=== PATIENT | male | born 1960 | race Caucasian/White ===

== ENCOUNTER 2017-02-09 20:15 | Emergency (ER) | payer BC, OTHER ==
[~2017-02-09] VITALS: Ht 193 cm; Wt 99.1 kg
[2017-02-09 20:20] VITALS: TEMP 37; Ht 193 cm; Wt 99.1 kg
[2017-02-09] MEDS ORDERED: ATOR-24 PO (20:36)
[2017-02-09] MEDS ORDERED: ASPI81TA28 PO (20:36)
[2017-02-09] MEDS ORDERED: MULT-506 PO (20:36)
[2017-02-09] MEDS ORDERED: BUPIVACAINE 0.5 % 5 MG/1 ML MPF 30ML VIAL ONE (21:07)
[2017-02-09] MEDS ORDERED: XYLOCAINE 1%/SOD BICARB 20 ML VIAL INFIL ONE (21:15)
[2017-02-09] MEDS ORDERED: IBUPROFEN 600 MG TAB PO STA (21:19)
[2017-02-09] MEDS ORDERED: NORCO 5/325MG HOME PACK PO ONE (22:15)
[2017-02-09] MEDS ORDERED: CEPHALEXIN 500MG HOME PACK 1 EA BTL PO ONE (22:15)
--- NOTE | 2017-02-09 22:24 | DIAGNOSTIC IMAGING REPORT ---
LEFT FINGER(S) MIN 2 VIEWS ROUTINE CLINICAL HISTORY: LEFT 5TH FINGER, LAC TO PALMAR PROX PHALANX trauma COMPARISON: None. DISCUSSION: The bones and joint spaces appear intact. There is no evidence of fracture, dislocation or bony disease. There is no evidence for soft tissue swelling. IMPRESSION: No acute bony abnormality. Soft tissue laceration adjacent to the proximal phalanx Electronically signed by: Lennox Collier M.D. 02/09/2017 10:22 PM Dictated Date/Time: 02/09/2017 10:22 PM
[2017-02-09] MEDS ORDERED: HYDR-5688 PO (22:35)
[2017-02-09] MEDS ORDERED: CEPH500C2 PO (22:35)
--- NOTE | 2017-02-09 22:36 | EMERGENCY ROOM VISIT NOTE ---
ED Visit Note First contact with patient: 20:41 CHIEF COMPLAINT: Left fifth finger laceration just prior to arrival HISTORY OF PRESENT ILLNESS: Patient is a [id number]-[id number] 56-year-old white male who presents the emergency department a complaint by his for evaluation of a laceration to the palmar aspect of his left fifth finger that he sustained just prior to arrival. He was using a catering sous chef's knife to carve a turkey, when he accidentally cut the finger. There has been brisk, pulsatile bleeding that has been minimally controlled with pressure. The patient denies any numbness or tingling. He rates his pain a /10. REVIEW OF SYSTEMS: Review of systems as per HPI. All other systems reviewed were negative. At least 6 systems reviewed. PMH: Electronic medical records are reviewed and summarized as above/below. See Problem List. He reports that his tetanus is up-to-date, he believes in 2013. SOCIAL HISTORY: Patient lives at home with his . Works as an pre sales systems engineer. Nonsmoker, drinks alcohol socially. PHYSICAL EXAM: Vital Signs: Reviewed Nurse's notes. There is a 3 cm long laceration on the palmar aspect of the left fifth finger, over the mid proximal phalanx. The edges gape apart with traction. There is no foreign material in the wound and it looks clean. There is is brisk pulsatile bleeding from the radial end of the laceration. Extension of the finger is full and strong. The patient is able to flex at the MCP, has slight flexion at the PIP and is unable to flex at the DIP joint. Extension is full. He has good strength to resisted extension at the MCP PIP and DIP joints. Sensation to light touch is grossly intact over the left fifth finger. EMERGENCY DEPARTMENT COURSE: The patient was seen and examined as above shortly after arrival in the exam room D1. Dressing was removed and he was noted to have brisk bleeding from the wound. Suture setup was performed, and a digital block using a 2:1 mixture of 0.5% Sensorcaine and 1% plain buffered lidocaine was used. When adequate anesthesia was obtained, a finger tourniquet was placed successfully, with complete cessation of bleeding. This allowed for complete visualization of the wound and full exploration. The finger was then prepped with Betadine and draped sterilely. Wound was irrigated copiously using 250 mL of normal saline solution. There was complete transection of the flexor tendon noted. Laceration did not appear to extend into the joint space. I was unable to palpate the proximal phalanx in the base of the wound. The source of the most brisk bleeding was noted to be on the proximal side of the laceration near the webspace between the fourth and fifth fingers. Vessel was isolated, and a [id number] 4-0 Vicryl was placed. The remainder of the wound was repaired using 5-0 nylon sutures. The finger tourniquet was loosened before the radial aspect of the laceration was repaired to allow for return of blood flow, and hemostasis was maintained. Wound was again irrigated with normal saline solution, and the remainder the wound was closed. Wound was cleansed and dressed and patient was sent for an x-ray of the finger which was negative for any bony involvement. Patient was then placed in a dorsal hand/ wrist splint with the wrist and fingers in flexion. Patient will be placed on Keflex given the flexor tendon injury. He was given Willits to use for pain. He was given contact information for Dr. Chris [place] [facility] [place] and surgical intervention. The patient rated his discomfort a 4/10 at discharge. LEFT FINGER(S) MIN 2 VIEWS ROUTINE CLINICAL HISTORY: LEFT 5TH FINGER, LAC TO PALMAR PROX PHALANX trauma COMPARISON: None. DISCUSSION: The bones and joint spaces appear intact. There is no evidence of fracture, dislocation or bony disease. There is no evidence for soft tissue swelling. IMPRESSION: No acute bony abnormality. Soft tissue laceration adjacent to the proximal phalanx Problem List Medical Problems: (1) Hyperlipidemia Nec/Nos Status: Chronic Current/Historical Medications Scheduled Aspirin (Aspirin Ec), 81 MG PO DAILY Atorvastatin (Lipitor), 40 MG PO DAILY Cephalexin Monohydrate (Keflex), 500 MG PO TID Multivitamin (Multivitamin), 1 TAB PO DAILY Scheduled PRN Hydrocodone/Acetaminophen 5MG/325MG (Willits 5MG/325MG), 1-2 TABLETS PO Q4 PRN for Pain Allergies Coded Allergies: No Known Allergies (Unverified , 02/09/17) Vital Signs Date Time Temp Pulse Resp B/P Pulse Ox O2 Delivery O2 Flow Rate FiO2 02/09/17 22:56 88 20 152/107 98 02/09/17 20:20 37.0 95 16 174/97 98 Room Air Medications Administered Medications (Trade) Dose Ordered Sig/Amish Route Start Time Stop Time Status Last Admin Dose Admin Ibuprofen (Motrin Tab) 600 mg NOW STAT PO 02/09/17 21:19 02/09/17 21:20 DC 02/09/17 21:34 600 MG Cephalexin Monohydrate (Keflex 500MG Home Pack) 1 homepack NOW ONCE PO 02/09/17 22:15 02/09/17 22:16 DC 02/09/17 22:27 1 HOMEPACK Acetaminophen/ Hydrocodone Bitart (Willits 5/325mg Home Pack) 1 homepack UD ONCE PO 02/09/17 22:15 02/09/17 22:16 DC 02/09/17 22:27 1 HOMEPACK Departure Information Impression Primary Impression: Laceration of left little finger with tendon involvement Prescriptions Hydrocodone/Acetaminophen 5MG/325MG (Willits 5MG/325MG) Tab 1-2 TABLETS PO Q4 Y for Pain, #20 TAB For Initial Treatment Prov: Evelia Clark PA 02/09/17 Cephalexin Monohydrate (KEFLEX) 500 Mg Cap 500 MG PO TID, #21 CAP Prov: Evelia Clark PA 02/09/17 Referrals Damon Voss III, M.D. (PCP) Alexx Chris MD Patient Instructions My [facility] Additional Instructions Cephalexin(Keflex) 500mg: Take one pill 3 times daily for 7 days to prevent infection. Finish all antibiotics unless instructed otherwise by orthopedic surgery. All antibiotics can cause diarrhea. If this occurs and you feel worse or it does not resolve in 1-2 days follow up with your doctor or return to the Emergency Department as this could be signs of serious underlying problems. Any medication can cause an allergic reaction, stop the pills immediately and return to the ER for rash, hives, breathing difficulties, or swelling. Hydrocodone/Acetaminophen (Willits) 5/325 mg: Take 1-2 pills every four hours for breakthrough pain. Avoid alcohol, operating machinery or dangerous equipment, working on ladders or roofs, DRIVING, or situations where being under the influence may be dangerous. It is recommended to use an dfkh-vkh-psmuhyh stool softener such as Colace, 100mg twice daily while taking this medication to avoid constipation. Ibuprofen(Motrin, Advil) may be used for fever or pain. Use 600mg every six hours as needed. Take with food. Avoid using more than 2400mg in a 24 hour period. Do not use 2400mg per day for more than three consecutive days without physician direction. Prolonged inappropriate use can lead to stomach upset or ulcers. This medication can be taken if you need to drive, work, or perform activities which may be dangerous when taking narcotic pain medication. (AND/OR) Acetaminophen(Tylenol) may be used for fever or pain. Use 1000mg every six hours as needed. Avoid using more than 3000mg in a 24 hour period. This medication can be taken if you need to drive, work, or perform activities which may be dangerous when taking narcotic pain medication. Ice compresses for 20 minutes at a time four times daily for 2-3 days. Rest and elevate your injury. Do not get the splint wet. If your splint feels excessively tight, you have worsening pain, develop numbness or tingling, or your digits appear blue, loosen the thiago wrap. Then reapply the thiago wrap gently without removing the splint. If your symptoms are not quickly relieved return to the ER for re- evaluation. Continue current medications. Return to the ER immediately for any numbness, tingling, severe pain, extreme swelling in the extremity or as needed. Call [facility] on Saturday at 8 AM to arrange follow up for your injury. Tell them you were seen in the emergency department over the weekend, lacerated your finger, and have an injury to your flexor tendon.
[2017-02-09 22:56] VITALS: BP 152/107; PULSE 88; O2SAT 98
== END 2017-02-09 22:58 | disposition home or self-care (01) ==
LOC: C.EDB 20:16 → C.EDD 22:58
DX: S61.217A Laceration without foreign body of left little finger without damage to nail, initial encounter (principal); E78.5 Hyperlipidemia, unspecified; Z79.82 Long term (current) use of aspirin; Z79.899 Other long term (current) drug therapy; W26.0XXA Contact with knife, initial encounter; Y93.G1 Activity, food preparation and clean up